=== PATIENT | male | born 1985 | race Caucasian/White ===

== ENCOUNTER 2022-02-21 01:33 | Inpatient (IN) ==
[2022-02-21] MEDS ORDERED: Naloxone 0.4 MG/ML INJ IVP PRN (07:11)
[2022-02-21] MEDS ORDERED: Ondansetron 4 MG/2 ML VIAL IVP PRN (07:11)
[2022-02-21] MEDS ORDERED: D5% in 0.45% NACL 1,000 ML IVC PRN (07:16)
[2022-02-21] MEDS ORDERED: *HR* Dextrose 50 % in Water (Syg) 50 ML SYRINGE IVP PRN ×2 (07:16→17:42)
[2022-02-21 07:23] LABS: VBG HCO3 14 mEq/L (21-27); VBG PCO2 41 mmHg (41-51); VBG PH 7.13 pH Units (7.32-7.42); VBG PO2 64 mmHg (25-50)
[2022-02-21 07:36] LABS: BUN/Creatinine Ratio 13 (6-26); Blood Urea Nitrogen 9 mg/dL (6-20); Carbon Dioxide 14 mEq/L (23-29); Chloride 108 mEq/L (98-107); Glucose 142 mg/dL (70-105); Osmolality,Calculated 279 (280-300); Potassium 3.4 mEq/L (3.5-5.1); Sodium 134 mEq/L (136-145); eGFR For African Americans > 60 (> 60); eGFR For Non-African Americans > 60 (> 60)
[2022-02-21] MEDS: 0.9 % Sodium Chloride w KCl 20 MEQ/1,000 ML MLS IVC SCH ×8 (08:03→22:00)
[2022-02-21 08:05] LABS: Basophils % 0.1 %; Hematocrit 39.5 % (37.5-50.1); Hemoglobin 13.2 g/dL (12.9-16.9); Lymphocytes # 2.1 K/mcL (0.6-4.6); Lymphocytes % 10.1 %; Mean Corpuscular HGB Conc 33.4 g/dL (31.6-35.5); Mean Corpuscular Volume 95.6 fL (83.0-100.0); Mean Platelet Volume 9.7 fL (9.4-12.4); Monocytes # 1.9 K/mcL (0.0-1.3); Monocytes % 9.2 %; Neutrophils # 16.5 K/mcL (1.6-8.9); Platelet Count 343 K/mcL (140-400); Red Blood Count 4.13 M/mcL (4.19-5.50); Red Cell Distribution Width 12.2 % (11.5-14.5); Segmented Neutrophils % 79.6 %; White Blood Count 20.8 K/mcL (4.3-11.1)
[2022-02-21] MEDS: 0.9 % Sodium Chloride 1,000 ML IVC SCH ×8 (08:14→22:00)
[2022-02-21] MEDS: D5% in 0.45% NACL w KCl 20 MEQ/1,000 ML MLS IVC PRN ×2 (09:15→13:45)
[2022-02-21 09:16] LABS: Magnesium 1.5 mg/dL (1.6-2.6); Phosphorous 1.3 mg/dL (2.7-4.5)
[2022-02-21 09:17] LABS: Troponin I < 0.03 ng/mL (< 0.04)
[2022-02-21 14:01] LABS: VBG HCO3 20 mEq/L (21-27); VBG PCO2 44 mmHg (41-51); VBG PH 7.26 pH Units (7.32-7.42); VBG PO2 39 mmHg (25-50)
[2022-02-21 14:28] LABS: BUN/Creatinine Ratio 9 (6-26); Blood Urea Nitrogen 6 mg/dL (6-20); Calcium 7.4 mg/dL (8.6-10.3); Carbon Dioxide 19 mEq/L (23-29); Chloride 108 mEq/L (98-107); Glucose 152 mg/dL (70-105); Osmolality,Calculated 281 (280-300); Potassium 3.1 mEq/L (3.5-5.1); Sodium 135 mEq/L (136-145); eGFR For African Americans > 60 (> 60); eGFR For Non-African Americans > 60 (> 60)
[2022-02-21] MEDS: *HR* Heparin 5,000 UNIT/ML VIAL SQ SCH (17:17)
[2022-02-21] MEDS ORDERED: Dextrose 4 GM Chewable Tablets PO PRN ×2 (17:42)
[2022-02-21] MEDS ORDERED: D5% in Water 1,000 ML IVC PRN (17:42)
[2022-02-21 20:24] LABS: VBG HCO3 16 mEq/L (21-27); VBG PCO2 26 mmHg (41-51); VBG PO2 98 mmHg (25-50)
[2022-02-21 20:36] LABS: BUN/Creatinine Ratio 15 (6-26); Blood Urea Nitrogen 8 mg/dL (6-20); Calcium 7.8 mg/dL (8.6-10.3); Carbon Dioxide 14 mEq/L (23-29); Chloride 104 mEq/L (98-107); Glucose 238 mg/dL (70-105); Osmolality,Calculated 280 (280-300); Potassium 3.6 mEq/L (3.5-5.1); Sodium 132 mEq/L (136-145); eGFR For African Americans > 60 (> 60); eGFR For Non-African Americans > 60 (> 60)
[2022-02-21 20:44] LABS: Troponin I < 0.03 ng/mL (< 0.04)
[2022-02-21] MEDS ORDERED: Insulin DETEMIR 100 UNIT/ML X5UNITS SUBQ SCH (21:00)
[2022-02-21] MEDS: Insulin LISPRO 300 UNITS/3 ML VIAL SUBQ SCH (22:09)
[2022-02-21 23:23] LABS: VBG HCO3 17 mEq/L (21-27); VBG PCO2 28 mmHg (41-51); VBG PH 7.39 pH Units (7.32-7.42); VBG PO2 84 mmHg (25-50)
[2022-02-21 23:35] LABS: BUN/Creatinine Ratio 18 (6-26); Blood Urea Nitrogen 10 mg/dL (6-20); Calcium 8.1 mg/dL (8.6-10.3); Carbon Dioxide 16 mEq/L (23-29); Chloride 102 mEq/L (98-107); Glucose 318 mg/dL (70-105); Osmolality,Calculated 285 (280-300); Potassium 3.3 mEq/L (3.5-5.1); Sodium 132 mEq/L (136-145); eGFR For African Americans > 60 (> 60); eGFR For Non-African Americans > 60 (> 60)
[2022-02-22 04:54] LABS: Hematocrit 40.7 % (37.5-50.1); Hemoglobin 13.8 g/dL (12.9-16.9); Mean Corpuscular HGB Conc 33.9 g/dL (31.6-35.5); Mean Corpuscular Hemoglobin 31.8 pg (28.0-33.3); Mean Corpuscular Volume 93.8 fL (83.0-100.0); Mean Platelet Volume 10.4 fL (9.4-12.4); Platelet Count 316 K/mcL (140-400); Red Blood Count 4.34 M/mcL (4.19-5.50); Red Cell Distribution Width 12.5 % (11.5-14.5); White Blood Count 15.3 K/mcL (4.3-11.1)
[2022-02-22 05:24] LABS: BUN/Creatinine Ratio 16 (6-26); Blood Urea Nitrogen 9 mg/dL (6-20); Calcium 8.4 mg/dL (8.6-10.3); Carbon Dioxide 13 mEq/L (23-29); Chloride 98 mEq/L (98-107); Glucose 299 mg/dL (70-105); Osmolality,Calculated 284 (280-300); Potassium 3.5 mEq/L (3.5-5.1); Sodium 132 mEq/L (136-145); eGFR For African Americans > 60 (> 60); eGFR For Non-African Americans > 60 (> 60)
[2022-02-22 05:40] LABS: Estimated Average Glucose 438 mg/dl; Hemoglobin A1C 16.9 %
[2022-02-22] MEDS ORDERED: Insulin Regular, Human 100 UNIT/ML IV PRN (06:19)
[2022-02-22] MEDS ORDERED: 0.9 % Sodium Chloride w KCl 20 MEQ/1,000 ML MLS IVC SCH (06:30)
[2022-02-22] MEDS: *HR* Heparin 5,000 UNIT/ML VIAL SQ SCH ×2 (06:35→17:37)
[2022-02-22 07:13] LABS: VBG HCO3 11 mEq/L (21-27); VBG PCO2 15 mmHg (41-51); VBG PH 7.48 pH Units (7.32-7.42); VBG PO2 190 mmHg (25-50)
[2022-02-22 07:46] LABS: BUN/Creatinine Ratio 15 (6-26); Blood Urea Nitrogen 9 mg/dL (6-20); Calcium 8.2 mg/dL (8.6-10.3); Carbon Dioxide 13 mEq/L (23-29); Chloride 98 mEq/L (98-107); Glucose 323 mg/dL (70-105); Osmolality,Calculated 283 (280-300); Potassium 3.6 mEq/L (3.5-5.1); Sodium 131 mEq/L (136-145); eGFR For African Americans > 60 (> 60); eGFR For Non-African Americans > 60 (> 60)
[2022-02-22 08:19] LABS: Magnesium 1.8 mg/dL (1.6-2.6); Phosphorous 1.5 mg/dL (2.7-4.5)
[2022-02-22 10:28] LABS: ABG Base Excess -4 mEq/L (-2 to 3); ABG HCO3 20 mEq/L (21-27); ABG Oxygen Saturation 97 % (95-98); ABG PCO2 33 mmHg (35-45); ABG PH 7.39 pH Units (7.32-7.45); ABG PO2 93 mmHg (85-104); ABG TCO2 21 mEq/L (20-26)
[2022-02-22 10:54] LABS: VBG HCO3 20 mEq/L (21-27); VBG PCO2 33 mmHg (41-51); VBG PH 7.39 pH Units (7.32-7.42); VBG PO2 165 mmHg (25-50)
[2022-02-22 11:14] LABS: BUN/Creatinine Ratio 16 (6-26); Blood Urea Nitrogen 8 mg/dL (6-20); Carbon Dioxide 23 mEq/L (23-29); Chloride 103 mEq/L (98-107); Glucose 170 mg/dL (70-105); Osmolality,Calculated 282 (280-300); Potassium 3.3 mEq/L (3.5-5.1); Sodium 135 mEq/L (136-145); eGFR For African Americans > 60 (> 60); eGFR For Non-African Americans > 60 (> 60)
[2022-02-22] MEDS ORDERED: Insulin DETEMIR 100 UNIT/ML X5UNITS SUBQ ONE (11:39)
[2022-02-22] MEDS: Insulin LISPRO 300 UNITS/3 ML VIAL SUBQ SCH ×3 (14:44→20:45)
[2022-02-22] MEDS: Insulin DETEMIR 100 UNIT/ML X5UNITS SUBQ SCH (20:49)
[2022-02-23] MEDS: *HR* Heparin 5,000 UNIT/ML VIAL SQ SCH (06:25)
[2022-02-23 08:26] LABS: Basophils % 0.1 %; Eosinophils % 0.5 %; Hemoglobin 12.9 g/dL (12.9-16.9); Immature Granulocytes % 0.5 % (0-4); Lymphocytes % 27.3 %; Mean Corpuscular HGB Conc 34.9 g/dL (31.6-35.5); Mean Corpuscular Hemoglobin 31.9 pg (28.0-33.3); Mean Corpuscular Volume 91.6 fL (83.0-100.0); Mean Platelet Volume 10.1 fL (9.4-12.4); Monocytes # 0.8 K/mcL (0.0-1.3); Neutrophils # 4.4 K/mcL (1.6-8.9); Platelet Count 243 K/mcL (140-400); Red Blood Count 4.04 M/mcL (4.19-5.50); Red Cell Distribution Width 12.2 % (11.5-14.5); Segmented Neutrophils % 60.6 %
[2022-02-23 08:31] LABS: White Blood Count 7.3 K/mcL (4.3-11.1)
[2022-02-23 08:52] VITALS: BP 109/68; PULSE 88; TEMP 97.9; O2SAT 98
[2022-02-23 09:36] LABS: BUN/Creatinine Ratio 27 (6-26); Blood Urea Nitrogen 10 mg/dL (6-20); Calcium 8.5 mg/dL (8.6-10.3); Carbon Dioxide 33 mEq/L (23-29); Chloride 99 mEq/L (98-107); Glucose 58 mg/dL (70-105); Osmolality,Calculated 283 (280-300); Potassium 3.2 mEq/L (3.5-5.1); Sodium 138 mEq/L (136-145); eGFR For African Americans > 60 (> 60); eGFR For Non-African Americans > 60 (> 60)
[2022-02-23] MEDS: Insulin DETEMIR 100 UNIT/ML X5UNITS SUBQ SCH (09:43)
[2022-02-23] MEDS: Insulin LISPRO 300 UNITS/3 ML VIAL SUBQ SCH (09:43)
== END 2022-02-23 11:32 | disposition home or self-care (01) | DRG 420 ==
LOC: 2NNU → SUATTDRO 06:39 → 3ANU 02-23 03:25
PROVIDERS: ADMIT Family Medicine; ATTEND Family Medicine

== ENCOUNTER 2022-03-17 14:27 | Observation (INO) ==
[2022-03-17 14:54] LABS: VBG HCO3 27 mEq/L (21-27); VBG PCO2 43 mmHg (41-51); VBG PO2 88 mmHg (25-50)
[2022-03-17 15:25] LABS: Basophils # 0.1 K/mcL (0.0-0.2); Basophils % 0.9 %; Eosinophils # 0.1 K/mcL (0.0-0.6); Eosinophils % 1.3 %; Hematocrit 47.4 % (37.5-50.1); Hemoglobin 15.3 g/dL (12.9-16.9); Immature Granulocytes % 0.6 % (0-4); Lymphocytes # 1.2 K/mcL (0.6-4.6); Lymphocytes % 16.4 %; Mean Corpuscular HGB Conc 32.3 g/dL (31.6-35.5); Mean Corpuscular Hemoglobin 33.3 pg (28.0-33.3); Mean Platelet Volume 10.2 fL (9.4-12.4); Monocytes # 0.6 K/mcL (0.0-1.3); Monocytes % 8.6 %; Neutrophils # 5.1 K/mcL (1.6-8.9); Platelet Count 305 K/mcL (140-400); Red Cell Distribution Width 12.6 % (11.5-14.5); Segmented Neutrophils % 72.2 %
[2022-03-17 15:32] LABS: BUN/Creatinine Ratio 17 (6-26); Blood Urea Nitrogen 15 mg/dL (6-20); Calcium 9.1 mg/dL (8.6-10.3); Carbon Dioxide 26 mEq/L (23-29); Chloride 87 mEq/L (98-107); Glucose 1123 mg/dL (70-105); Osmolality,Calculated 314 (280-300); Potassium 5.5 mEq/L (3.5-5.1); Sodium 123 mEq/L (136-145); eGFR For African Americans > 60 (> 60); eGFR For Non-African Americans > 60 (> 60)
[2022-03-17 15:39] LABS: Bilirubin,Urine Negative (Negative); Blood,Urine Negative (Negative); Clarity,Urine Clear (Clear); Color,Urine Colorless (Yellow); Glucose,Urine (UA) >=1000 mg/dL (Normal); Ketones,Urine 10 mg/dL (Negative); Leukocyte Esterase,Urine Negative (Negative); Nitrite,Urine Negative (Negative); Protein,Urine Negative (Neg-Trace); Specific Gravity,Urine 1.028 (1.010-1.025); Urobilinogen,Urine Normal (Normal)
[2022-03-17] MEDS: 0.9 % Sodium Chloride 1,000 ML IVC SCH ×2 (16:32→17:30)
[2022-03-17] MEDS ORDERED: Insulin Human Regular 10 UNIT in 0.9 % Sodium Chloride 10 ML IV ONE (18:31)
[2022-03-17] MEDS ORDERED: 0.9 % Sodium Chloride 1,000 ML IVC SCH (18:45)
[2022-03-17] MEDS ORDERED: Insulin Human Regular 5 UNIT in 0.9 % Sodium Chloride 10 ML IV ONE (20:07)
[2022-03-17] MEDS ORDERED: 0.9 % Sodium Chloride 1,000 ML IVC ONE (20:08)
[2022-03-17 21:12] LABS: BUN/Creatinine Ratio 21 (6-26); Blood Urea Nitrogen 15 mg/dL (6-20); Calcium 7.6 mg/dL (8.6-10.3); Carbon Dioxide 27 mEq/L (23-29); Chloride 99 mEq/L (98-107); Glucose 615 mg/dL (70-105); Osmolality,Calculated 308 (280-300); Potassium 3.6 mEq/L (3.5-5.1); Sodium 134 mEq/L (136-145); eGFR For African Americans > 60 (> 60); eGFR For Non-African Americans > 60 (> 60)
[2022-03-17] MEDS ORDERED: 0.9 % Sodium Chloride 1,000 ML IV ONE (22:26)
[2022-03-18] MEDS ORDERED: Acetaminophen 325 MG TABLET PO PRN (00:11)
[2022-03-18] MEDS ORDERED: Melatonin 3 MG TABLET PO PRN (00:11)
[2022-03-18] MEDS ORDERED: Naloxone 0.4 MG/ML INJ IVP PRN (00:11)
[2022-03-18] MEDS ORDERED: Ondansetron 4 MG/2 ML VIAL IVP PRN (00:11)
[2022-03-18] MEDS ORDERED: Dextrose 4 GM Chewable Tablets PO PRN ×2 (00:13)
[2022-03-18] MEDS ORDERED: *HR* Dextrose 50 % in Water (Syg) 50 ML SYRINGE IVP PRN (00:13)
[2022-03-18] MEDS ORDERED: D5% in Water 1,000 ML IVC PRN (00:13)
[2022-03-18] MEDS ORDERED: Nicotine 21 MG PATCH.TD24 TD SCH (01:00)
[2022-03-18 01:49] LABS: BUN/Creatinine Ratio 25 (6-26); Blood Urea Nitrogen 14 mg/dL (6-20); Calcium 8.5 mg/dL (8.6-10.3); Carbon Dioxide 26 mEq/L (23-29); Chloride 98 mEq/L (98-107); Glucose 620 mg/dL (70-105); Osmolality,Calculated 303 (280-300); Potassium 4.7 mEq/L (3.5-5.1); Sodium 132 mEq/L (136-145); eGFR For African Americans > 60 (> 60); eGFR For Non-African Americans > 60 (> 60)
[2022-03-18] MEDS ORDERED: Insulin Human Regular 10 UNIT in 0.9 % Sodium Chloride 10 ML IV ONE (01:49)
[2022-03-18] MEDS: 0.9 % Sodium Chloride 1,000 ML IVC SCH ×2 (02:08→08:57)
[2022-03-18] MEDS ORDERED: Insulin Human Regular 5 UNIT in 0.9 % Sodium Chloride 10 ML IV ONE (04:21)
[2022-03-18 05:31] LABS: BUN/Creatinine Ratio 23 (6-26); Blood Urea Nitrogen 11 mg/dL (6-20); Calcium 8.3 mg/dL (8.6-10.3); Carbon Dioxide 32 mEq/L (23-29); Chloride 99 mEq/L (98-107); Glucose 385 mg/dL (70-105); Osmolality,Calculated 293 (280-300); Potassium 3.7 mEq/L (3.5-5.1); Sodium 134 mEq/L (136-145); eGFR For African Americans > 60 (> 60); eGFR For Non-African Americans > 60 (> 60)
[2022-03-18] MEDS ORDERED: Insulin DETEMIR 100 UNIT/ML X5UNITS SUBQ SCH ×2 (05:45→21:00)
[2022-03-18] MEDS ORDERED: Insulin LISPRO 300 UNITS/3 ML VIAL SUBQ SCH ×2 (07:30→21:00)
[2022-03-18] MEDS: Insulin LISPRO 300 UNITS/3 ML VIAL SUBQ SCH ×2 (08:57→11:08)
[2022-03-18 11:06] VITALS: BP 107/65; PULSE 81; TEMP 98.4; O2SAT 97
== END 2022-03-18 12:33 | disposition left against medical advice (07) ==
LOC: 2ANU 14:27 → EMEROOARM 14:27 → SUATTDRO 22:44 → 2ANU 03-18 00:36
PROVIDERS: ADMIT Internal Medicine; ATTEND Pharmacist

== ENCOUNTER 2022-04-02 05:53 | Observation (INO) ==
[2022-04-02] MEDS ORDERED: Insulin Regular, Human 100 UNIT/ML IV PRN (09:25)
[2022-04-02] MEDS ORDERED: D5% in 0.45% NACL 1,000 ML IVC PRN (09:25)
[2022-04-02] MEDS ORDERED: *HR* Dextrose 50 % in Water (Syg) 50 ML SYRINGE IVP PRN ×2 (09:25→10:32)
[2022-04-02] MEDS ORDERED: Naloxone 0.4 MG/ML INJ IVP PRN (09:31)
[2022-04-02 10:12] LABS: Basophils % 0.2 %; Hematocrit 42.7 % (37.5-50.1); Hemoglobin 14.3 g/dL (12.9-16.9); Immature Granulocytes % 0.7 % (0-4); Lymphocytes % 8.6 %; Mean Corpuscular HGB Conc 33.5 g/dL (31.6-35.5); Mean Corpuscular Hemoglobin 32.1 pg (28.0-33.3); Mean Platelet Volume 10.5 fL (9.4-12.4); Monocytes # 1.4 K/mcL (0.0-1.3); Monocytes % 6.2 %; Neutrophils # 19.4 K/mcL (1.6-8.9); Platelet Count 290 K/mcL (140-400); Red Blood Count 4.45 M/mcL (4.19-5.50); Red Cell Distribution Width 12.6 % (11.5-14.5); Segmented Neutrophils % 84.3 %
[2022-04-02 10:16] LABS: VBG HCO3 9 mEq/L (21-27); VBG PCO2 33 mmHg (41-51); VBG PH 7.05 pH Units (7.32-7.42); VBG PO2 107 mmHg (25-50)
[2022-04-02 10:16] LABS: Basophils # 0.1 K/mcL (0.0-0.2)
[2022-04-02 10:21] LABS: BUN/Creatinine Ratio 14 (6-26); Blood Urea Nitrogen 9 mg/dL (6-20); Calcium 6.7 mg/dL (8.6-10.3); Carbon Dioxide 9 mEq/L (23-29); Chloride 111 mEq/L (98-107); Glucose 219 mg/dL (70-105); Osmolality,Calculated 287 (280-300); Potassium 3.1 mEq/L (3.5-5.1); Sodium 136 mEq/L (136-145); eGFR For African Americans > 60 (> 60); eGFR For Non-African Americans > 60 (> 60)
[2022-04-02] MEDS: 0.9 % Sodium Chloride 1,000 ML IVC SCH ×6 (10:21→19:24)
[2022-04-02] MEDS ORDERED: Calcium Gluconate 1gm/50mL 1 GM/50 ML BAG IVPB ONE (11:41)
[2022-04-02 12:23] LABS: Magnesium 1.4 mg/dL (1.6-2.6)
[2022-04-02] MEDS: D5% in 0.45% NACL w KCl 20 MEQ/1,000 ML MLS IVC PRN ×3 (12:56→22:28)
[2022-04-02] MEDS ORDERED: Potassium Phosphate 44 MEQ in 0.9 % Sodium Chloride 250 ML IVPB PRN (13:17)
[2022-04-02 14:38] LABS: VBG HCO3 16 mEq/L (21-27); VBG PCO2 40 mmHg (41-51); VBG PH 7.22 pH Units (7.32-7.42); VBG PO2 73 mmHg (25-50)
[2022-04-02 16:00] LABS: BUN/Creatinine Ratio 11 (6-26); Blood Urea Nitrogen 6 mg/dL (6-20); Calcium 7.1 mg/dL (8.6-10.3); Carbon Dioxide 16 mEq/L (23-29); Chloride 112 mEq/L (98-107); Glucose 274 mg/dL (70-105); Osmolality,Calculated 283 (280-300); Sodium 133 mEq/L (136-145); eGFR For African Americans > 60 (> 60); eGFR For Non-African Americans > 60 (> 60)
[2022-04-02 18:25] LABS: VBG HCO3 18 mEq/L (21-27); VBG PCO2 42 mmHg (41-51); VBG PH 7.24 pH Units (7.32-7.42); VBG PO2 59 mmHg (25-50)
[2022-04-02 18:49] LABS: BUN/Creatinine Ratio 9 (6-26); Blood Urea Nitrogen 5 mg/dL (6-20); Calcium 7.6 mg/dL (8.6-10.3); Carbon Dioxide 18 mEq/L (23-29); Chloride 112 mEq/L (98-107); Glucose 104 mg/dL (70-105); Osmolality,Calculated 278 (280-300); Potassium 3.3 mEq/L (3.5-5.1); Sodium 135 mEq/L (136-145); eGFR For African Americans > 60 (> 60); eGFR For Non-African Americans > 60 (> 60)
[2022-04-02 22:35] LABS: VBG HCO3 18 mEq/L (21-27); VBG PCO2 38 mmHg (41-51); VBG PH 7.29 pH Units (7.32-7.42); VBG PO2 79 mmHg (25-50)
[2022-04-02 22:46] LABS: BUN/Creatinine Ratio 9 (6-26); Blood Urea Nitrogen 5 mg/dL (6-20); Calcium 7.9 mg/dL (8.6-10.3); Carbon Dioxide 18 mEq/L (23-29); Chloride 109 mEq/L (98-107); Glucose 112 mg/dL (70-105); Osmolality,Calculated 276 (280-300); Potassium 3.7 mEq/L (3.5-5.1); Sodium 134 mEq/L (136-145); eGFR For African Americans > 60 (> 60); eGFR For Non-African Americans > 60 (> 60)
[2022-04-03 02:32] LABS: VBG HCO3 19 mEq/L (21-27); VBG PCO2 40 mmHg (41-51); VBG PH 7.29 pH Units (7.32-7.42); VBG PO2 63 mmHg (25-50)
[2022-04-03 02:44] LABS: BUN/Creatinine Ratio 7 (6-26); Blood Urea Nitrogen 4 mg/dL (6-20); Calcium 7.9 mg/dL (8.6-10.3); Carbon Dioxide 21 mEq/L (23-29); Chloride 108 mEq/L (98-107); Glucose 114 mg/dL (70-105); Osmolality,Calculated 276 (280-300); Phosphorous 1.6 mg/dL (2.7-4.5); Potassium 3.4 mEq/L (3.5-5.1); Sodium 134 mEq/L (136-145); eGFR For African Americans > 60 (> 60); eGFR For Non-African Americans > 60 (> 60)
[2022-04-03] MEDS ORDERED: Insulin Regular, Human 100 UNIT/ML IV ONE (03:15)
[2022-04-03] MEDS ORDERED: Dextrose Gel 15 GM/37.5 ML TUBE PO PRN ×4 (04:02→08:02)
[2022-04-03] MEDS ORDERED: D5% in Water 1,000 ML IVC PRN ×2 (04:02→08:02)
[2022-04-03] MEDS ORDERED: Nicotine 21 MG PATCH.TD24 TD SCH ×2 (05:00→09:00)
[2022-04-03] MEDS ORDERED: *HR* Enoxaparin 40 MG/0.4 ML SYRINGE SQ SCH (06:00)
[2022-04-03] MEDS ORDERED: Insulin LISPRO 300 UNITS/3 ML VIAL SUBQ SCH ×3 (07:30→21:00)
[2022-04-03] MEDS ORDERED: Potassium Phosphate 44 MEQ in 0.9 % Sodium Chloride 250 ML IVPB ONE ×2 (07:48→08:02)
[2022-04-03] MEDS ORDERED: Potassium Phosphate 44 MEQ in 0.9 % Sodium Chloride 250 ML IVPB PRN (08:02)
[2022-04-03] MEDS ORDERED: Naloxone 0.4 MG/ML INJ IVP PRN (08:02)
[2022-04-03] MEDS ORDERED: Insulin Regular, Human 100 UNIT/ML IV PRN (08:02)
[2022-04-03] MEDS ORDERED: Insulin DETEMIR 100 UNIT/ML X5UNITS SUBQ SCH ×2 (09:00)
[2022-04-03] MEDS: Acetaminophen 325 MG TABLET PO PRN ×3 (10:12→21:13)
[2022-04-03] MEDS: 0.9 % Sodium Chloride 1,000 ML IVC SCH ×4 (10:45→10:51)
[2022-04-03] MEDS: 0.9 % Sodium Chloride w KCl 20 MEQ/1,000 ML MLS IVC SCH ×2 (10:49→10:50)
[2022-04-03 11:11] LABS: Basophils % 0.2 %; Eosinophils % 0.2 %; Hematocrit 39.3 % (37.5-50.1); Hemoglobin 13.6 g/dL (12.9-16.9); Immature Granulocytes % 0.3 % (0-4); Lymphocytes # 1.2 K/mcL (0.6-4.6); Lymphocytes % 9.9 %; Mean Corpuscular HGB Conc 34.6 g/dL (31.6-35.5); Mean Corpuscular Volume 92.5 fL (83.0-100.0); Mean Platelet Volume 10.5 fL (9.4-12.4); Monocytes # 0.8 K/mcL (0.0-1.3); Monocytes % 6.5 %; Neutrophils # 9.7 K/mcL (1.6-8.9); Platelet Count 188 K/mcL (140-400); Red Blood Count 4.25 M/mcL (4.19-5.50); Segmented Neutrophils % 82.9 %; White Blood Count 11.7 K/mcL (4.3-11.1)
[2022-04-03] MEDS: Insulin LISPRO 300 UNITS/3 ML VIAL SUBQ SCH ×2 (12:12→17:11)
[2022-04-03 18:46] VITALS: TEMP 97.8
[2022-04-03 23:05] VITALS: BP 115/59; PULSE 80; O2SAT 95
[2022-04-04] MEDS ORDERED: *HR* Enoxaparin 40 MG/0.4 ML SYRINGE SQ SCH (06:00)
[2022-04-04] MEDS ORDERED: Insulin DETEMIR 100 UNIT/ML X5UNITS SUBQ SCH (09:00)
[2022-04-04 12:27] LABS: Estimated Average Glucose 456 mg/dl; Hemoglobin A1C 17.5 %
== END 2022-04-03 23:37 | disposition left against medical advice (07) ==
LOC: ICNU → 3BNU 04-03 10:41
PROVIDERS: ADMIT Internal Medicine; ATTEND Internal Medicine

== ENCOUNTER 2022-04-13 12:44 | Inpatient (IN) ==
[2022-04-13] MEDS ORDERED: Acetaminophen 325 MG TABLET PO PRN (15:29)
[2022-04-13] MEDS ORDERED: Insulin Regular, Human 100 UNIT/ML IV PRN (15:29)
[2022-04-13] MEDS ORDERED: *HR* Dextrose 50 % in Water (Syg) 50 ML SYRINGE IVP PRN (15:29)
[2022-04-13] MEDS ORDERED: Naloxone 0.4 MG/ML INJ IVP PRN (15:29)
[2022-04-13] MEDS ORDERED: Ondansetron 4 MG/2 ML VIAL IVP PRN (15:35)
[2022-04-13] MEDS ORDERED: Albuterol 2.5 MG/3 ML NEBULIZER IH PRN (15:35)
[2022-04-13 15:47] LABS: Bacteria,Urine Few per hpf (None-Few); Bilirubin,Urine Negative (Negative); Blood,Urine Negative (Negative); Clarity,Urine Clear (Clear); Color,Urine Colorless (Yellow); Glucose,Urine (UA) 500 mg/dL (Normal); Ketones,Urine 100 mg/dL (Negative); Leukocyte Esterase,Urine Negative (Negative); Mucus,Urine Few per lpf (None-Few); Nitrite,Urine Negative (Negative); Protein,Urine Trace mg/dL (Neg-Trace); Specific Gravity,Urine 1.006 (1.010-1.025); Squamous Epithelial Cell,Urine Few per hpf (None-Few); Urobilinogen,Urine Normal (Normal); WBC,Urine 0-3 per hpf (0-3)
[2022-04-13 16:18] LABS: Basophils # 0.1 K/mcL (0.0-0.2); Basophils % 0.2 %; Hematocrit 47.2 % (37.5-50.1); Hemoglobin 15.5 g/dL (12.9-16.9); Immature Granulocytes % 1.1 % (0-4); Lymphocytes # 1.6 K/mcL (0.6-4.6); Lymphocytes % 6.7 %; Mean Corpuscular HGB Conc 32.8 g/dL (31.6-35.5); Mean Corpuscular Hemoglobin 32.2 pg (28.0-33.3); Mean Corpuscular Volume 97.9 fL (83.0-100.0); Mean Platelet Volume 9.3 fL (9.4-12.4); Monocytes # 1.3 K/mcL (0.0-1.3); Monocytes % 5.5 %; Neutrophils # 20.8 K/mcL (1.6-8.9); Platelet Count 296 K/mcL (140-400); Red Blood Count 4.82 M/mcL (4.19-5.50); Red Cell Distribution Width 12.9 % (11.5-14.5); Segmented Neutrophils % 86.5 %
[2022-04-13 16:27] LABS: VBG HCO3 8 mEq/L (21-27); VBG PCO2 23 mmHg (41-51); VBG PH 7.16 pH Units (7.32-7.42); VBG PO2 83 mmHg (25-50)
[2022-04-13] MEDS: Piperacillin/Tazobactam 3.375 GM in 0.9 % Sodium Chloride Mini Bag 100 ML IVPB SCH (16:33)
[2022-04-13] MEDS: *HR* Heparin 5,000 UNIT/ML VIAL SQ SCH (16:33)
[2022-04-13 16:43] LABS: Estimated Average Glucose 461 mg/dl; Hemoglobin A1C 17.7 %
[2022-04-13] MEDS: Pantoprazole 40 MG VIAL IVP SCH (16:44)
[2022-04-13 17:27] LABS: Alanine Aminotransferase 10 Units/L (7-52); Albumin 3.5 g/dL (3.5-5.7); Albumin/Globulin Ratio 1.2 (1.1-2.2); Alkaline Phosphatase 39 Units/L (34-104); Aspartate Amino Transferase 13 Units/L (13-39); BUN/Creatinine Ratio 11 (6-26); Bilirubin,Indirect 0.3 mg/dL (0.0-1.0); Bilirubin,Total 0.3 mg/dL (0.3-1.0); Blood Urea Nitrogen 8 mg/dL (6-20); Calcium 7.4 mg/dL (8.6-10.3); Carbon Dioxide 6 mEq/L (23-29); Chloride 108 mEq/L (98-107); Globulin 2.9 g/dL (2.4-3.5); Glucose 158 mg/dL (70-105); Magnesium 1.6 mg/dL (1.6-2.6); Osmolality,Calculated 278 (280-300); Phosphorous 1.7 mg/dL (2.7-4.5); Potassium 3.5 mEq/L (3.5-5.1); Sodium 133 mEq/L (136-145); Total Protein 6.4 g/dL (6.4-8.9); eGFR For African Americans > 60 (> 60); eGFR For Non-African Americans > 60 (> 60)
[2022-04-13] MEDS ORDERED: Ringers Solution, Lactated 1,000 ML IVC ONE (17:37)
[2022-04-13] MEDS ORDERED: Potassium Phosphate 44 MEQ in 0.9 % Sodium Chloride 250 ML IVPB ONE (17:38)
[2022-04-13] MEDS: D5% in 0.45% NACL w KCl 20 MEQ/1,000 ML MLS IVC PRN ×2 (17:55→22:16)
[2022-04-13] MEDS: Ipratropium/Albuterol Neb 3 ML IH SCH ×3 (18:18→23:45)
[2022-04-13] MEDS: Calcium Gluconate 1gm/50mL 1 GM/50 ML BAG IVPB SCH ×2 (18:36→19:48)
[2022-04-14 00:50] LABS: VBG HCO3 19 mEq/L (21-27); VBG PCO2 39 mmHg (41-51); VBG PH 7.29 pH Units (7.32-7.42); VBG PO2 85 mmHg (25-50)
[2022-04-14 01:12] LABS: BUN/Creatinine Ratio 10 (6-26); Blood Urea Nitrogen 5 mg/dL (6-20); Calcium 7.7 mg/dL (8.6-10.3); Carbon Dioxide 19 mEq/L (23-29); Chloride 111 mEq/L (98-107); Glucose 156 mg/dL (70-105); Osmolality,Calculated 282 (280-300); Potassium 3.5 mEq/L (3.5-5.1); Sodium 136 mEq/L (136-145); eGFR For African Americans > 60 (> 60); eGFR For Non-African Americans > 60 (> 60)
[2022-04-14 01:13] LABS: Troponin I < 0.03 ng/mL (< 0.04)
[2022-04-14] MEDS: Piperacillin/Tazobactam 3.375 GM in 0.9 % Sodium Chloride Mini Bag 100 ML IVPB SCH ×3 (01:27→18:54)
[2022-04-14] MEDS: D5% in 0.45% NACL w KCl 20 MEQ/1,000 ML MLS IVC PRN ×2 (02:37→06:11)
[2022-04-14] MEDS: Ipratropium/Albuterol Neb 3 ML IH SCH ×5 (03:38→20:35)
[2022-04-14] MEDS: Pantoprazole 40 MG VIAL IVP SCH (04:35)
[2022-04-14] MEDS: *HR* Heparin 5,000 UNIT/ML VIAL SQ SCH ×2 (04:36→18:38)
[2022-04-14 05:11] LABS: Basophils % 0.1 %; Eosinophils # 0.1 K/mcL (0.0-0.6); Eosinophils % 0.4 %; Hematocrit 39.6 % (37.5-50.1); Hemoglobin 13.5 g/dL (12.9-16.9); Immature Granulocytes % 0.6 % (0-4); Lymphocytes # 1.6 K/mcL (0.6-4.6); Lymphocytes % 11.7 %; Mean Corpuscular HGB Conc 34.1 g/dL (31.6-35.5); Mean Corpuscular Hemoglobin 31.6 pg (28.0-33.3); Mean Corpuscular Volume 92.7 fL (83.0-100.0); Mean Platelet Volume 9.6 fL (9.4-12.4); Monocytes # 1.1 K/mcL (0.0-1.3); Monocytes % 7.9 %; Neutrophils # 10.9 K/mcL (1.6-8.9); Platelet Count 245 K/mcL (140-400); Red Blood Count 4.27 M/mcL (4.19-5.50); Red Cell Distribution Width 12.8 % (11.5-14.5); Segmented Neutrophils % 79.3 %; White Blood Count 13.7 K/mcL (4.3-11.1)
[2022-04-14 05:31] LABS: BUN/Creatinine Ratio 11 (6-26); Blood Urea Nitrogen 5 mg/dL (6-20); Carbon Dioxide 19 mEq/L (23-29); Chloride 111 mEq/L (98-107); Glucose 108 mg/dL (70-105); Osmolality,Calculated 278 (280-300); Potassium 3.3 mEq/L (3.5-5.1); Sodium 135 mEq/L (136-145); eGFR For African Americans > 60 (> 60); eGFR For Non-African Americans > 60 (> 60)
[2022-04-14 05:32] LABS: Alanine Aminotransferase 11 Units/L (7-52); Albumin 2.9 g/dL (3.5-5.7); Albumin/Globulin Ratio 1.5 (1.1-2.2); Alkaline Phosphatase 34 Units/L (34-104); Aspartate Amino Transferase 8 Units/L (13-39); BUN/Creatinine Ratio 11 (6-26); Bilirubin,Direct 0.1 mg/dL (0.0-0.2); Bilirubin,Indirect 0.2 mg/dL (0.0-1.0); Bilirubin,Total 0.3 mg/dL (0.3-1.0); Blood Urea Nitrogen 5 mg/dL (6-20); Calcium 7.9 mg/dL (8.6-10.3); Carbon Dioxide 18 mEq/L (23-29); Chloride 112 mEq/L (98-107); Glucose 109 mg/dL (70-105); Magnesium 1.8 mg/dL (1.6-2.6); Osmolality,Calculated 278 (280-300); Phosphorous 1.9 mg/dL (2.7-4.5); Potassium 3.3 mEq/L (3.5-5.1); Sodium 135 mEq/L (136-145); Total Protein 4.9 g/dL (6.4-8.9); eGFR For African Americans > 60 (> 60); eGFR For Non-African Americans > 60 (> 60)
[2022-04-14] MEDS ORDERED: Dextrose Gel 15 GM/37.5 ML TUBE PO PRN ×2 (07:19)
[2022-04-14] MEDS ORDERED: D5% in Water 1,000 ML IVC PRN (07:19)
[2022-04-14] MEDS: Insulin DETEMIR 100 UNIT/ML X5UNITS SUBQ SCH ×3 (08:04→20:56)
[2022-04-14] MEDS: 0.9 % Sodium Chloride w KCl 20 MEQ/1,000 ML MLS IVC SCH ×2 (08:05→18:51)
[2022-04-14] MEDS: Insulin LISPRO 300 UNITS/3 ML VIAL SUBQ SCH ×4 (08:13→17:00)
[2022-04-14] MEDS: Calcium Gluconate 1gm/50mL 1 GM/50 ML BAG IVPB SCH ×2 (08:22→08:56)
[2022-04-14 11:36] LABS: BUN/Creatinine Ratio 8 (6-26); Blood Urea Nitrogen 5 mg/dL (6-20); Calcium 8.2 mg/dL (8.6-10.3); Carbon Dioxide 22 mEq/L (23-29); Chloride 104 mEq/L (98-107); Glucose 362 mg/dL (70-105); Osmolality,Calculated 284 (280-300); Potassium 3.7 mEq/L (3.5-5.1); Sodium 131 mEq/L (136-145); eGFR For African Americans > 60 (> 60); eGFR For Non-African Americans > 60 (> 60)
[2022-04-14] MEDS ORDERED: Insulin LISPRO 300 UNITS/3 ML VIAL SUBQ SCH (21:00)
[2022-04-15] MEDS: Ipratropium/Albuterol Neb 3 ML IH SCH ×3 (00:12→07:28)
[2022-04-15] MEDS: Piperacillin/Tazobactam 3.375 GM in 0.9 % Sodium Chloride Mini Bag 100 ML IVPB SCH (00:28)
[2022-04-15 05:57] LABS: Basophils % 0.3 %; Eosinophils # 0.1 K/mcL (0.0-0.6); Eosinophils % 0.7 %; Hematocrit 36.3 % (37.5-50.1); Hemoglobin 12.5 g/dL (12.9-16.9); Immature Granulocytes % 0.6 % (0-4); Lymphocytes # 2.1 K/mcL (0.6-4.6); Lymphocytes % 31.2 %; Mean Corpuscular HGB Conc 34.4 g/dL (31.6-35.5); Mean Corpuscular Hemoglobin 31.7 pg (28.0-33.3); Mean Corpuscular Volume 92.1 fL (83.0-100.0); Monocytes # 0.7 K/mcL (0.0-1.3); Monocytes % 9.7 %; Platelet Count 215 K/mcL (140-400); Red Blood Count 3.94 M/mcL (4.19-5.50); Segmented Neutrophils % 57.5 %
[2022-04-15 06:01] LABS: Neutrophils # 3.9 K/mcL (1.6-8.9); White Blood Count 6.7 K/mcL (4.3-11.1)
[2022-04-15] MEDS: *HR* Heparin 5,000 UNIT/ML VIAL SQ SCH (06:19)
[2022-04-15 06:54] LABS: BUN/Creatinine Ratio 20 (6-26); Blood Urea Nitrogen 9 mg/dL (6-20); Carbon Dioxide 32 mEq/L (23-29); Chloride 103 mEq/L (98-107); Glucose 69 mg/dL (70-105); Magnesium 1.8 mg/dL (1.6-2.6); Osmolality,Calculated 285 (280-300); Phosphorous 2.7 mg/dL (2.7-4.5); Potassium 3.7 mEq/L (3.5-5.1); Sodium 139 mEq/L (136-145); eGFR For African Americans > 60 (> 60); eGFR For Non-African Americans > 60 (> 60)
[2022-04-15 08:28] VITALS: BP 135/73; PULSE 88; TEMP 98.7; O2SAT 96
[2022-04-15] MEDS: Insulin DETEMIR 100 UNIT/ML X5UNITS SUBQ SCH (08:34)
[2022-04-15] MEDS: Insulin LISPRO 300 UNITS/3 ML VIAL SUBQ SCH ×3 (08:35→08:37)
== END 2022-04-15 10:26 | disposition home or self-care (01) | DRG 720 ==
LOC: ICNU → 3ANU 04-14 16:54
PROVIDERS: ADMIT Pediatrics; ATTEND Pediatrics

== ENCOUNTER 2022-08-05 19:32 | Inpatient (IN) ==
[2022-08-05] MEDS ORDERED: *HR* Dextrose 50 % in Water (Syg) 50 ML SYRINGE IVP PRN (22:27)
[2022-08-05] MEDS ORDERED: D5% in 0.45% NACL w KCl 20 MEQ/1,000 ML MLS IVC PRN (22:27)
[2022-08-05] MEDS: 0.9 % Sodium Chloride 1,000 ML IVC SCH (23:05)
[2022-08-05] MEDS ORDERED: Melatonin 3 MG TABLET PO PRN (23:18)
[2022-08-05] MEDS ORDERED: Naloxone 0.4 MG/ML INJ IVP PRN (23:18)
[2022-08-05] MEDS ORDERED: Ondansetron 4 MG/2 ML VIAL IVP PRN (23:18)
[2022-08-06] MEDS ORDERED: Furosemide 40 MG/4 ML VIAL IVP ONE (00:31)
[2022-08-06] MEDS ORDERED: 0.9 % Sodium Chloride 1,000 ML ONE (01:18)
[2022-08-06] MEDS: Albumin 25% 25gram/100mL 25 GM/100 ML IV.SOLN IVC SCH ×2 (01:30→04:00)
[2022-08-06] MEDS: 0.9 % Sodium Chloride 1,000 ML IVC SCH (01:37)
[2022-08-06 01:45] LABS: Basophils % 0.1 %; Eosinophils % 0.4 %; Hematocrit 27.9 % (37.5-50.1); Hemoglobin 9.3 g/dL (12.9-16.9); Immature Granulocytes % 0.9 % (0-4); Lymphocytes # 1.2 K/mcL (0.6-4.6); Lymphocytes % 17.2 %; Mean Corpuscular HGB Conc 33.3 g/dL (31.6-35.5); Mean Corpuscular Hemoglobin 32.1 pg (28.0-33.3); Mean Corpuscular Volume 96.2 fL (83.0-100.0); Mean Platelet Volume 8.9 fL (9.4-12.4); Monocytes # 0.3 K/mcL (0.0-1.3); Monocytes % 4.6 %; Neutrophils # 5.4 K/mcL (1.6-8.9); Platelet Count 328 K/mcL (140-400); Red Cell Distribution Width 14.1 % (11.5-14.5); Segmented Neutrophils % 76.8 %
[2022-08-06 02:02] LABS: BUN/Creatinine Ratio 39 (6-26); Blood Urea Nitrogen 12 mg/dL (6-20); Calcium 8.1 mg/dL (8.6-10.3); Carbon Dioxide 36 mEq/L (23-29); Chloride 96 mEq/L (98-107); Glucose 184 mg/dL (70-105); Magnesium 1.7 mg/dL (1.6-2.6); Osmolality,Calculated 289 (280-300); Phosphorous 3.4 mg/dL (2.7-4.5); Potassium 3.3 mEq/L (3.5-5.1); Sodium 137 mEq/L (136-145)
[2022-08-06 02:20] LABS: Acetaminophen < 10 mcg/mL (10-20); Salicylate < 2.5 mg/dL (15.0-30.0)
[2022-08-06 03:09] LABS: Hepatitis B Surface Antigen Nonreactive (Nonreactive)
[2022-08-06] MEDS ORDERED: Dextrose Gel 15 GM/37.5 ML TUBE PO PRN ×2 (03:15)
[2022-08-06] MEDS ORDERED: Insulin DETEMIR 100 UNIT/ML X5UNITS SUBQ ONE (03:15)
[2022-08-06] MEDS ORDERED: D5% in Water 1,000 ML IVC PRN (03:15)
[2022-08-06 03:38] LABS: Hepatitis B Core IgM Nonreactive (Nonreactive)
[2022-08-06 03:39] LABS: Hepatitis A Antibody IgM Nonreactive (Nonreactive); Hepatitis C Virus Antibody Nonreactive (Nonreactive)
[2022-08-06] MEDS ORDERED: Insulin LISPRO 300 UNITS/3 ML VIAL SUBQ SCH ×2 (06:00→21:00)
[2022-08-06] MEDS ORDERED: Vancomycin 1,500 MG/265 ML IV.SOLN IVPB SCH (06:00)
[2022-08-06 08:46] LABS: Albumin 2.7 g/dL (3.5-5.7); Albumin/Globulin Ratio 1.1 (1.1-2.2); Bilirubin,Indirect 0.2 mg/dL (0.0-1.0); Bilirubin,Total 0.2 mg/dL (0.3-1.0); Globulin 2.4 g/dL (2.4-3.5); Total Protein 5.1 g/dL (6.4-8.9)
[2022-08-06] MEDS: Furosemide 40 MG/4 ML VIAL IVP SCH (09:13)
[2022-08-06] MEDS: cefTRIAXone 1,000 MG in 0.9 % Sodium Chloride 10 ML IVP SCH (09:15)
[2022-08-06 11:08] LABS: INR 0.9; Prothrombin Time 9.9 Seconds (9.4-12.1)
[2022-08-06 11:17] LABS: % Iron Saturation 19 % (20-55); Iron 38 mcg/dL (65-175); Transferrin 143 mg/dL (203-362)
[2022-08-06 11:36] LABS: Ferritin 708 ng/mL (20-250)
[2022-08-06 11:49] LABS: Folate 4.6 ng/mL (3.0-16.0)
[2022-08-06] MEDS: Insulin LISPRO 300 UNITS/3 ML VIAL SUBQ SCH ×2 (12:34→20:15)
[2022-08-06] MEDS: Acetaminophen 325 MG TABLET PO PRN ×2 (15:50→22:43)
[2022-08-06] MEDS: Doxycycline 100 MG in 0.9 % Sodium Chloride Mini Bag 100 ML IVPB SCH (18:29)
[2022-08-06 18:38] LABS: Protein/Creatinine Ratio,Urine 0.33 mg/mg (0.00-0.20); Sodium, Urine 67.4 mEq/L
[2022-08-06] MEDS: Insulin DETEMIR 100 UNIT/ML X5UNITS SUBQ SCH (20:14)
[2022-08-06] MEDS ORDERED: Ketorolac 30 MG/ML VIAL IVP ONE (20:43)
[2022-08-07 01:42] LABS: Basophils # 0.1 K/mcL (0.0-0.2); Basophils % 0.6 %; Eosinophils # 0.1 K/mcL (0.0-0.6); Eosinophils % 0.6 %; Hematocrit 29.1 % (37.5-50.1); Hemoglobin 9.5 g/dL (12.9-16.9); Immature Granulocytes % 1.5 % (0-4); Lymphocytes # 1.4 K/mcL (0.6-4.6); Lymphocytes % 16.3 %; Mean Corpuscular HGB Conc 32.6 g/dL (31.6-35.5); Mean Corpuscular Hemoglobin 32.4 pg (28.0-33.3); Mean Corpuscular Volume 99.3 fL (83.0-100.0); Mean Platelet Volume 9.1 fL (9.4-12.4); Monocytes # 0.4 K/mcL (0.0-1.3); Monocytes % 4.6 %; Neutrophils # 6.8 K/mcL (1.6-8.9); Nucleated Red Blood Cells 0.3 /100 WBC (0); Platelet Count 336 K/mcL (140-400); Red Blood Count 2.93 M/mcL (4.19-5.50); Red Cell Distribution Width 14.9 % (11.5-14.5); Segmented Neutrophils % 76.4 %; White Blood Count 8.9 K/mcL (4.3-11.1)
[2022-08-07 01:50] LABS: INR 0.9; Prothrombin Time 10.2 Seconds (9.4-12.1)
[2022-08-07 02:04] LABS: Alanine Aminotransferase 390 Units/L (7-52); Albumin 2.5 g/dL (3.5-5.7); Albumin/Globulin Ratio 0.9 (1.1-2.2); Alkaline Phosphatase 72 Units/L (34-104); Aspartate Amino Transferase 585 Units/L (13-39); BUN/Creatinine Ratio 38 (6-26); Bilirubin,Direct 0.1 mg/dL (0.0-0.2); Bilirubin,Indirect 0.1 mg/dL (0.0-1.0); Bilirubin,Total 0.2 mg/dL (0.3-1.0); Blood Urea Nitrogen 14 mg/dL (6-20); Calcium 8.1 mg/dL (8.6-10.3); Carbon Dioxide 36 mEq/L (23-29); Chloride 97 mEq/L (98-107); Globulin 2.8 g/dL (2.4-3.5); Glucose 175 mg/dL (70-105); Magnesium 1.9 mg/dL (1.6-2.6); Osmolality,Calculated 285 (280-300); Phosphorous 3.4 mg/dL (2.7-4.5); Potassium 3.7 mEq/L (3.5-5.1); Sodium 135 mEq/L (136-145); Total Protein 5.3 g/dL (6.4-8.9)
[2022-08-07] MEDS: Doxycycline 100 MG in 0.9 % Sodium Chloride Mini Bag 100 ML IVPB SCH (05:06)
[2022-08-07] MEDS: Acetaminophen 325 MG TABLET PO PRN (08:57)
[2022-08-07] MEDS: Insulin LISPRO 300 UNITS/3 ML VIAL SUBQ SCH ×2 (08:58→13:43)
[2022-08-07] MEDS ORDERED: Furosemide 40 MG/4 ML VIAL IVP ONE (10:05)
[2022-08-07 10:18] VITALS: BP 118/70; PULSE 92; TEMP 98.9; O2SAT 94
[2022-08-07] MEDS: cefTRIAXone 1,000 MG in 0.9 % Sodium Chloride 10 ML IVP SCH (11:00)
[2022-08-07] MEDS: Furosemide 40 MG/4 ML VIAL IVP SCH (11:00)
[2022-08-07] MEDS: Insulin DETEMIR 100 UNIT/ML X5UNITS SUBQ SCH (11:01)
[2022-08-07] MEDS ORDERED: hydrOXYzine pamoate 25 MG CAPSULE PO PRN (14:04)
[2022-08-07] MEDS ORDERED: Nicotine 21 MG PATCH.TD24 TD SCH (14:15)
== END 2022-08-07 14:45 | disposition left against medical advice (07) | DRG 720 ==
LOC: 2NNU → SUATTDRO 22:06
PROVIDERS: ADMIT Internal Medicine; ATTEND Internal Medicine